=== PATIENT | female | born 1950 | race Caucasian/White ===

== ENCOUNTER 2023-09-30 05:07 | Inpatient (IN) | payer OTHER ==
[~2023-09-30] VITALS: Ht 160 cm; Wt 74.8 kg
[~2023-09-30 05:07] MED LIST: CEFAZOLIN SOD 2 GM in D5W 50 ML IV ONE
[2023-09-30] MEDS ORDERED: CELECOXIB 100 MG CAPSULE ONE (05:14)
[2023-09-30] MEDS ORDERED: ACETAMINOPHEN 500 MG TABLET ONE (05:14)
[2023-09-30] MEDS ORDERED: SCOPOLAMINE HYDROBROMIDE 1 MG PATCH .72 H (TRANSDERM-SCOP) TD ONE (05:17)
[2023-09-30] MEDS ORDERED: oxyCODONE HCL 10 MG TAB.ER.12H PO ONE (05:18)
[2023-09-30] MEDS ORDERED: GABAPENTIN 300 MG CAPSULE ONE (05:18)
[2023-09-30] MEDS: ACETAMINOPHEN 500 MG TABLET PO ONE (05:48)
[2023-09-30] MEDS: CELECOXIB 100 MG CAPSULE PO ONE (05:48)
[2023-09-30] MEDS: SCOPOLAMINE HYDROBROMIDE 1 MG PATCH .72 H (TRANSDERM-SCOP) TD ONE (05:48)
[2023-09-30] MEDS: GABAPENTIN 300 MG CAPSULE PO ONE (05:48)
[2023-09-30] MEDS: oxyCODONE HCL 10 MG TAB.ER.12H PO ONE (07:24)
[2023-09-30] MEDS ORDERED: LR 1,000 ML IV SCH (09:00)
[2023-09-30] MEDS ORDERED: MEPERIDINE HCL/PF 25 MG/ML DISP.SYRIN IVP PRN (09:00)
[2023-09-30] MEDS ORDERED: HYDROmorphone 1 MG/ML INJ. CARTRIDGE IVP PRN ×5 (09:00→11:00)
[2023-09-30] MEDS ORDERED: BISACODYL 10 MG/SUPPOSITORY RC PRN (10:15)
[2023-09-30] MEDS ORDERED: NALOXONE HCL 0.4 MG/ML AMP (NARCAN) IVP PRN ×3 (10:15)
[2023-09-30] MEDS ORDERED: LACTULOSE 20 GM/30 ML UDC PO PRN (10:15)
[2023-09-30] MEDS ORDERED: DIPHENHYDRAMINE HCL 25 MG CAPSULE PO PRN (10:15)
[2023-09-30] MEDS ORDERED: METOCLOPRAMIDE HCL 10 MG/2 ML VIAL IVP PRN (10:15)
[2023-09-30 10:57] VITALS: BP_SYST 141; PULSE 64; RESP 18; TEMP 97.5; O2SAT 98
[2023-09-30] MEDS ORDERED: traMADol HCL HCL 50 MG TABLET (ULTRAM) PO PRN (11:00)
[2023-09-30] MEDS ORDERED: oxyCODONE HCL 5 MG TABLET PO PRN ×2 (11:00)
[2023-09-30] MEDS ORDERED: LORATADINE 10 MG TABLET PO PRN (11:00)
[2023-09-30] MEDS ORDERED: ONDANSETRON HCL 4 MG/2 ML VIAL IVP PRN (11:45)
[2023-09-30] MEDS ORDERED: METOCLOPRAMIDE HCL 10 MG/2 ML VIAL ONE (11:58)
[2023-09-30] MEDS: METOCLOPRAMIDE HCL 10 MG/2 ML VIAL IVP PRN (12:02)
[2023-09-30] MEDS ORDERED: ACETAMINOPHEN 500 MG TABLET PO SCH (14:00)
[2023-09-30] MEDS ORDERED: KETOROLAC TROMETHAMINE 10 MG TABLET (TORADOL) PO SCH (14:00)
[2023-09-30] MEDS ORDERED: SENNOSIDES/DOCUSATE SODIUM 1 TAB TABLET(SENOKOT-S) PO SCH (21:00)
[2023-10-01] MEDS ORDERED: ASPIRIN 81 MG TAB.CHEW PO SCH (09:00)
[2023-10-01] MEDS ORDERED: CELECOXIB 200 MG CAPSULE PO SCH (11:00)
== END 2023-09-30 13:50 | disposition home health service (06) | DRG 470 ==
LOC: SMU 05:07
PROVIDERS: ADMIT Student in an Organized Health Care Education/Training Program; ATTEND Student in an Organized Health Care Education/Training Program
PROC: 0SR904A Replacement of Right Hip Joint with Ceramic on Polyethylene Synthetic Substitute, Uncemented, Open Approach (ICD-10-PCS; principal; 2023-09-30 07:30)
DX: M16.11 Unilateral primary osteoarthritis, right hip (principal)
CPT/HCPCS: 72170-TC; 76000; 87081; 88304; 88305; 88311; 96379; 97110-GP; 97116-GP; 97530-GP; J0690; J0696; J2765; J7060